=== PATIENT | female | born 1950 | race Hispanic/Latino ===

== ENCOUNTER → 2018-10-23 | Outpatient (CLI) | payer MEDICARE ==
[~2018-10-23] MED LIST: ARIP30TA11 PO; BUSP5TAB3 PO; CALC1CAP22 PO; CYCL30DR OU; FOLI1TAB85 PO; LEVO50TA11 PO; OLOP2.5D OU; QUET300T44 PO
--- NOTE | 2018-10-23 10:30 | NUR ---
MBSS COMPLETED. -S/S OF ASPIRATION. RECOMMEND FINELY CHOPPED, THIN LIQUIDS; PILLS WHOLE WITH LIQUIDS. PATIENT INFORMATION: Pt IS A 67 YEAR OLD FEMALE REFERRED FOR A BEDSIDE DYSPHAGIA EVALUATION SECONDARY TO CHOCKING EPISODE AND COUGHING AT MEALS. WAFER CUTTER REPORTS Pt FEEDS HERSELF AND IS IMPULSIVE WITH HER MEALS. Pt AMBULATED INTO RADIOLOGY WITH USE OF WALKER. Pt WITH CURVATURE OF SPINE LEANING FORWARD AT REST. Pt HAS A PAST MEDICAL HISTORY SIGNIFICANT FOR MILD IDD, ANEMIA, COMPLICATED CATARACT, HYPERLIPIDEMIA, SCHIZOPHRENIA, OSTEOPOROSIS. MBSS INTERPRETATION: Pt PRESENTS WITH MILD-MODERATE ORAL DYSPHAGIA CAUSED BY DECREASED ORAL MOTOR COORDINATION, SPARSE DENTITION EVIDENCED BY DECREASED MASTICATION WITH SOLIDS AND SWALLOWING OF SOLIDS PARTIALLY MASTICATED. NO PENETRATION OR ASPIRATION PRESENT AT THE TIME OF THE MBSS. Pt WAS IMPULSIVE WITH P.O. TRIALS: 1. TSP PUREED: GOOD 2. TSP PUDDING: GOOD 3. TSP MIXED: DECREASED MASTICATION 4. COOKIE: GOOD 5. TSP THIN LIQUIDS 6. THIN LIQUID VIA CUP SIP: GOOD 7. THIN LIQUIDS VIA STRAW: GOOD RECOMMENDATIONS: 1. FINELY CHOPPED, THIN LIQUIDS; PILLS WHOLE WITH LIQUIDS. 2. COMPENSATORY STRATEGIES: *SEATED AT 90 DEGREES *SLOW RATE *USE MAROON SPOON FOR VOLUME CONTROL *ADD GRAVY TO MEATS RECOMMENDATIONS AND RESULTS PROVIDED TO CAREGIVER. PT PROVIDED SAFE SWALLOW PRECAUTIONS VIA WRITTEN MODALITY. ALL QUESTIONS ANSWERED AT THIS TIME. G-CODES SWALLOWING: [id number] Addendum: 10/24/18 at 0844 by LUZ DEVINE Amended: Links added.
== END | disposition home or self-care (01) ==
LOC: RAH 09:57
PROVIDERS: ATTEND Family Medicine
DX: R13.10 Dysphagia, unspecified (principal); T17.308A Unspecified foreign body in larynx causing other injury, initial encounter
CPT/HCPCS: 74230; 92611